=== PATIENT | male | born 1985 | race Two or more races ===

== ENCOUNTER 2023-05-30 16:24 | Emergency (ER) | payer MEDICAID, OTHER ==
[~2023-05-30] VITALS: Ht 167.6 cm; Wt 100.0 kg
[2023-05-30] MEDS ORDERED: ACETAMINOPHEN 325 MG TAB PO ONE (17:00)
[2023-05-30 19:50] VITALS: BP 120/64
[2023-05-30 19:55] LABS: COVID19 ANTIGEN SOFIA FIA NEGATIVE (NEGATIVE)
[2023-05-30 19:59] LABS: Rapid Influenza B Negative (Negative)
[2023-05-30 20:00] LABS: Rapid Influenza A Positive (Negative)
[2023-05-30] MEDS ORDERED: ACET500T58 PO (20:58)
[2023-05-30] MEDS ORDERED: AZIT-43 PO (20:58)
[2023-05-30] MEDS ORDERED: OSEL75CA5 PO (20:58)
[2023-05-30 20:59] VITALS: PULSE 116; RESP 18; O2SAT 95
[2023-05-30 21:00] VITALS: TEMP 99.6
== END 2023-05-30 22:32 | disposition home or self-care (01) ==
LOC: ER 16:24
DX: J10.1 Influenza due to other identified influenza virus with other respiratory manifestations (principal); E11.9 Type 2 diabetes mellitus without complications; F12.10 Cannabis abuse, uncomplicated; Z20.822 Contact with and (suspected) exposure to COVID-19
CPT/HCPCS: 36415; 87426; 87804